=== PATIENT | female | born 2000 | race Hispanic/Latino ===

== ENCOUNTER 2021-03-07 08:07 | Day surgery (SDC) | payer OTHER ==
[2021-03-07 08:21] VITALS: BMI 34.9
[2021-03-07] MEDS ORDERED: hydrALAZINE 20 MG/ML VIAL SLOW IVP PRN (08:39)
[2021-03-07] MEDS ORDERED: Promethazine HCl 25 MG/ML VIAL IM PRN (08:39)
[2021-03-07] MEDS ORDERED: Ondansetron PF 4 MG/2 ML Vial IVP PRN (08:39)
[2021-03-07] MEDS ORDERED: Acetaminophen 500 MG TAB PO SCH (09:00)
[2021-03-07] MEDS ORDERED: Iron Sucrose Complex 500 MG in Sodium Chloride 0.9% 250 ML 250 ML IVPB SCH (09:30)
== END 2021-03-07 16:09 | disposition home or self-care (01) ==
LOC: CSHLD/OP 08:07
PROVIDERS: ATTEND Family Medicine
DX: O99.013 Anemia complicating pregnancy, third trimester (principal); Z3A.31 31 weeks gestation of pregnancy; Z79.899 Other long term (current) drug therapy
CPT/HCPCS: 96365; 96366; 99282; J1756; J7050

== ENCOUNTER 2023-03-08 10:06 | Day surgery (SDC) | payer OTHER ==
[2023-03-08] MEDS ORDERED: Acetaminophen 500 MG TAB ONE (10:19)
[2023-03-08] MEDS ORDERED: Acetaminophen 500 MG TAB PO SCH (10:30)
[2023-03-08] MEDS ORDERED: Iron Sucrose Complex 500 MG in Sodium Chloride 0.9% 250 ML 250 ML IVPB SCH (10:30)
== END 2023-03-08 15:00 | disposition home or self-care (01) ==
LOC: CSHSDC/OP 10:06
PROVIDERS: ATTEND Student in an Organized Health Care Education/Training Program
DX: O99.019 Anemia complicating pregnancy, unspecified trimester (principal); D64.9 Anemia, unspecified; Z3A.00 Weeks of gestation of pregnancy not specified
CPT/HCPCS: J1756; J7050

== ENCOUNTER 2023-04-27 08:21 | Day surgery (SDC) | payer OTHER ==
[2023-04-27] MEDS ORDERED: Acetaminophen 500 MG TAB ONE (08:28)
[2023-04-27] MEDS ORDERED: Acetaminophen 500 MG TAB PO SCH (08:45)
[2023-04-27] MEDS ORDERED: Iron Sucrose Complex 500 MG in Sodium Chloride 0.9% 250 ML 250 ML IVPB SCH (08:45)
== END 2023-04-27 13:20 | disposition home or self-care (01) ==
LOC: CSHSDC 08:21
PROVIDERS: ATTEND Student in an Organized Health Care Education/Training Program
DX: O99.013 Anemia complicating pregnancy, third trimester (principal); D64.9 Anemia, unspecified; Z3A.00 Weeks of gestation of pregnancy not specified
CPT/HCPCS: J1756; J7050

== ENCOUNTER 2023-05-31 18:33 | Day surgery (SDC) | payer OTHER ==
[2023-05-31 19:44] VITALS: BMI 35.7
[2023-05-31] MEDS ORDERED: hydrALAZINE 20 MG/ML VIAL SLOW IVP PRN (21:04)
== END 2023-05-31 21:30 | disposition home or self-care (01) ==
LOC: CSHLD/OP 18:33
PROVIDERS: ATTEND Family Medicine
DX: O26.853 Spotting complicating pregnancy, third trimester (principal); O24.415 Gestational diabetes mellitus in pregnancy, controlled by oral hypoglycemic drugs; Z3A.38 38 weeks gestation of pregnancy; Z79.84 Long term (current) use of oral hypoglycemic drugs; Z90.49 Acquired absence of other specified parts of digestive tract

== ENCOUNTER 2023-06-02 18:44 | Inpatient (IN) | payer OTHER ==
[2023-06-02 19:12] VITALS: BMI 35.9
[2023-06-02] MEDS ORDERED: Carboprost 250 MCG/ML AMP IM PRN (19:40)
[2023-06-02] MEDS ORDERED: Promethazine HCl 25 MG/ML VIAL IM PRN ×2 (19:40→21:30)
[2023-06-02] MEDS ORDERED: Ondansetron PF 4 MG/2 ML Vial IVP PRN ×2 (19:40→21:30)
[2023-06-02] MEDS ORDERED: Tranexamic Acid 1,000 MG/10 ML VIAL IVP PRN (19:40)
[2023-06-02] MEDS ORDERED: Docusate 100 MG CAP PO PRN (19:40)
[2023-06-02] MEDS ORDERED: Lidocaine 1% (PF) 30 ML VIAL SC PRN (19:40)
[2023-06-02] MEDS ORDERED: Methylergonovine 0.2 MG/ML VIAL IM PRN (19:40)
[2023-06-02] MEDS ORDERED: Ibuprofen 800 MG TAB PO PRN (19:40)
[2023-06-02] MEDS ORDERED: hydrALAZINE 20 MG/ML VIAL SLOW IVP PRN (19:40)
[2023-06-02] MEDS ORDERED: Oxytocin 30 units/NS 500 ML 500 ML IV SCH ×2 (19:45)
[2023-06-02] MEDS ORDERED: Lactated Ringer's 1,000 ML IV SCH (19:45)
[2023-06-02] MEDS ORDERED: fentaNYL/Ropivacaine Epidural 100 ML ONE (20:09)
[2023-06-02 20:21] LABS: Hematocrit 33.6 % (34.9-44.5); Mean Corpuscular HGB CONC 32.7 g/dL (32.0-36.0); Mean Corpuscular Hemoglobin 28.6 pg (27.0-33.0); Mean Corpuscular Volume 87.5 fl (81.6-98.3); Mean Platelet Volume 11.7 fl (7.4-10.4); Platelet Count 144 10x3/uL (150-450); RBC Distribution Width 20.6 % (11.5-14.5); Red Blood Cell (RBC) Count 3.84 10x6/uL (3.90-5.03); White Blood Cell (WBC) Count 8.8 10x3/uL (3.5-10.5)
[2023-06-02 20:59] LABS: Syphilis Antibody Nonreactive (Nonreactive); Syphilis Antibody Index 0.07 S/CO (<1.00 Non-Reactive)
[2023-06-02 21:00] LABS: HBSAg Index 0.19 S/CO (0-0.99); Hep B Surf Ag - L&D Non-Reactive S/CO (NonReactive)
[2023-06-02] MEDS ORDERED: Moisturizing Cream (Eucerin) 113 GM JAR TOP PRN (21:30)
[2023-06-02] MEDS ORDERED: Naloxone HCl 0.4 mg/ml Vial IVP PRN ×2 (21:30)
[2023-06-02] MEDS ORDERED: Communication Order-Pharmacy FS SCH (21:30)
[2023-06-02] MEDS ORDERED: diphenhydrAMINE 50 MG/ML VIAL IVP PRN (21:30)
[2023-06-02] MEDS ORDERED: Acetaminophen 325 MG TAB PO PRN (21:30)
[2023-06-02] MEDS ORDERED: ePHEDrine Sulfate 50 MG/10 ML VIAL SLOW IVP PRN (21:30)
[2023-06-02] MEDS ORDERED: Lactated Ringer's 500 ML IV PRN (21:30)
[2023-06-02] MEDS ORDERED: fentaNYL 2 mcg/Ropivacaine 0.2% Epidural 100 ML CADD EPIDURAL SCH (21:30)
[2023-06-03] MEDS ORDERED: hydrALAZINE 20 MG/ML VIAL SLOW IVP PRN (03:07)
[2023-06-03] MEDS ORDERED: Boostrix 0.5 ML (Tdap) VIAL (>/=7 yrs of age) IM ONE (03:07)
[2023-06-03] MEDS ORDERED: Milk Of Magnesia 30 ML UDCUP PO PRN (03:07)
[2023-06-03] MEDS ORDERED: Bisacodyl 10 MG SUPP PR PRN (03:07)
[2023-06-03] MEDS: Ibuprofen 800 MG TAB PO SCH ×3 (06:40→21:05)
[2023-06-03] MEDS ORDERED: Ferrous Sulfate 325 MG TAB PO SCH ×2 (08:00→09:00)
[2023-06-03] MEDS: Prenatal Vitamin 1 TAB PO SCH (08:52)
[2023-06-03] MEDS: Docusate 100 MG CAP PO SCH ×2 (08:52→21:04)
[2023-06-03] MEDS ORDERED: metFORMIN 500 MG TAB PO SCH (09:00)
[2023-06-03] MEDS: Acetaminophen 325 MG TAB PO PRN ×2 (16:11→22:58)
[2023-06-04] MEDS ORDERED: Cyclobenzaprine 10 MG TAB PO SCH (01:15)
[2023-06-04] MEDS ORDERED: Lidocaine 4% Patch TD SCH (01:30)
[2023-06-04] MEDS: Ibuprofen 800 MG TAB PO SCH (05:10)
[2023-06-04 08:10] VITALS: BP 119/59; TEMP 98
[2023-06-04] MEDS: Prenatal Vitamin 1 TAB PO SCH (10:22)
[2023-06-04] MEDS: Docusate 100 MG CAP PO SCH (10:22)
[2023-06-04] MEDS: Acetaminophen 325 MG TAB PO PRN (10:22)
== END 2023-06-04 13:35 | disposition home or self-care (01) | DRG 806 ==
LOC: CSHLD 18:44 → CSHPP 06-03 04:45
PROVIDERS: ADMIT Family Medicine; ATTEND Family Medicine
PROC: 10907ZC Drainage of Amniotic Fluid, Therapeutic from Products of Conception, Via Natural or Artificial Opening (ICD-10-PCS; 2023-06-02)
PROC: 10E0XZZ Delivery of Products of Conception, External Approach (ICD-10-PCS; principal; 2023-06-03)
DX: O36.8130 Decreased fetal movements, third trimester, not applicable or unspecified (principal); O41.03X0 Oligohydramnios, third trimester, not applicable or unspecified; Z37.0 Single live birth; O24.425 Gestational diabetes mellitus in childbirth, controlled by oral hypoglycemic drugs; O99.02 Anemia complicating childbirth; D50.9 Iron deficiency anemia, unspecified; Z3A.39 39 weeks gestation of pregnancy; O71.82 Other specified trauma to perineum and vulva; Z79.899 Other long term (current) drug therapy; Z79.84 Long term (current) use of oral hypoglycemic drugs; Z14.8 Genetic carrier of other disease
CPT/HCPCS: 36415; 36416; 85027; 86780; 86850; 86900; 86901; 87340; J2405; J2590